=== PATIENT | female | born 1970 | race Hispanic/Latino ===

== ENCOUNTER 2021-03-15 11:50 | Inpatient (IN) | payer OTHER ==
[~2021-03-15] VITALS: Ht 160 cm; Wt 130.6 kg
[2021-03-15] VITALS (22 sets, daily range): BP systolic 101–155; BP diastolic 60–99
[2021-03-15] MEDS ORDERED: HYDROMORPHONE 0.5 MG SYG (0.5MG/0.5ML) IVP SCH (14:00)
[2021-03-15 14:25] LABS: BASOPHILS % (AUTO) 0.2 % (0.0-5.0); EOSINOPHILS % (AUTO) 0.4 % (0.0-8.0); HEMATOCRIT 36.1 % (36-48); LYMPHOCYTES % (AUTO) 9.2 % (21.0-51.0); MEAN CORPUSCULAR HEMOGLOBIN 26.6 pg (27.0-33.0); MEAN CORPUSCULAR HGB CONC 29.1 g/dL (32.0-36.0); MEAN CORPUSCULAR VOLUME 91.6 fL (79-99); MONOCYTES % (AUTO) 6.8 % (3.0-13.0); NEUTROPHILS % (AUTO) 83.1 % (40.0-77.0); PLATELET COUNT (AUTO) 144 K/uL (130-400); RED BLOOD CELL COUNT(AUTO) 3.94 MIL/uL (4.00-5.50); RED CELL DISTRIBUTION WIDTH 18.4 % (11.0-15.5); WHITE BLOOD COUNT (AUTO) 12.1 K/uL (4.8-10.8)
[2021-03-15] MEDS ORDERED: ACETAMINOPHEN 325 MG TAB PO PRN (14:30)
[2021-03-15] MEDS ORDERED: HYDRALAZINE 20MG/ML VIAL IV PRN (14:30)
[2021-03-15] MEDS ORDERED: ONDANSETRON 4MG INJ IV PRN (14:30)
[2021-03-15] MEDS ORDERED: IOHEXOL-350 50ML VIAL IV ONE (14:31)
[2021-03-15 14:35] LABS: APPEARANCE,URINE Clear (CLEAR); BILIRUBIN,URINE Negative (NEGATIVE); COLOR,URINE Yellow (YELLOW); GLUCOSE, URINE (UA) Negative (NEGATIVE); KETONES,URINE Negative (NEGATIVE); LEUKOCYTE ESTERASE ,URINE Moderate (NEGATIVE); NITRATE,URINE Negative (NEGATIVE); OCCULT BLOOD,URINE Trace (NEGATIVE); PH,URINE 6.5 (5.0-8.0); PROTEIN,URINE POS 1+ mg/dL (NEGATIVE)
[2021-03-15 14:36] LABS: ALBUMIN 2.7 g/dL (3.5-5.0); BILIRUBIN,TOTAL 0.6 mg/dL (0.2-1.0); CREATININE 1.6 mg/dL (0.5-1.5); TOTAL PROTEIN, SERUM 7.1 g/dL (6.0-8.3)
[2021-03-15] MEDS ORDERED: SUCCINYLCHOLINE 200MG/10ML SYR ONE (14:40)
[2021-03-15] MEDS ORDERED: ROCURONIUM 10MG/1ML SYR 10 MG/ML ML ONE (14:40)
[2021-03-15] MEDS ORDERED: FENTANYL CITRATE PF 50 MCG/1 ML 2ML VIAL ONE (14:40)
[2021-03-15] MEDS ORDERED: PROPOFOL 10 MG/ML 20ML VIAL IV ONE (14:40)
[2021-03-15] MEDS ORDERED: LIDOCAINE PF 100MG/5ML (2%) SYRINGE 5ML ONE (14:40)
[2021-03-15] MEDS ORDERED: MIDAZOLAM HCL 1 MG/ML 2ML VIAL ONE (14:40)
[2021-03-15 14:49] LABS: INR 1.28 (0.85-1.15); PROTHROMBIN TIME 13.6 SEC (9.6-11.6)
[2021-03-15 14:50] LABS: PARTIAL THROMBOPLASTIN TIME 31.8 SEC (26.3-35.5)
[2021-03-15] MEDS ORDERED: LACTATED RINGERS 1000ML 1,000 ML IV ONE (14:53)
[2021-03-15] MEDS ORDERED: ZOSYN 3.375GM+NS 50ML 50 ML ONE (14:53)
[2021-03-15] MEDS ORDERED: SCOPOLAMINE HYDROBROMIDE 1 EACH ADH..PATCH TD ONE (14:53)
[2021-03-15 14:59] LABS: BAND NEUTROPHILS % (MANUAL) 9 % (0-2); LYMPHOCYTES % (MANUAL) 12 % (22-44); MONOCYTES % (MANUAL) 2 % (2-9); SEGMENTED NEUTROPHILS % 77 % (40-70)
[2021-03-15 15:00] LABS: MAN.DIFF COMMENT-IMPRESSION MANUAL DIFFERENTIAL; PLATELET MORPHOLOGY COMMENT ADEQUATE
[2021-03-15] MEDS: ZOSYN 3.375GM+NS 50ML 50 ML IV SCH ×2 (15:00→21:05)
[2021-03-15 15:05] LABS: BACTERIA,URINE Few /HPF (None Seen); RBC,URINE None Seen /HPF (0-1); SQUAMOUS EPITHELIAL CELL,UR 0-2 /HPF (0-2)
[2021-03-15] MEDS: LACTATED RINGERS 1000ML 1,000 ML IV SCH ×2 (16:06→18:01)
[2021-03-15] MEDS: FAMOTIDINE 20MG VIAL IV SCH (18:02)
[2021-03-15] MEDS ORDERED: ZOSYN 3.375GM+NS 50ML 50 ML IV SCH (21:00)
[2021-03-15] MEDS ORDERED: 0.9%NACL 100ML 100 ML ONE (21:00)
[2021-03-15] MEDS: HYDROMORPHONE 0.5 MG SYG (0.5MG/0.5ML) IV PRN (21:09)
[2021-03-16] MEDS ORDERED: HYDROMORPHONE 0.5 MG SYG (0.5MG/0.5ML) IVP SCH
[2021-03-16 04:46] VITALS: BP 113/78
[2021-03-16 05:23] LABS: HEMATOCRIT 32.3 % (36-48); MEAN CORPUSCULAR HEMOGLOBIN 27.2 pg (27.0-33.0); MEAN CORPUSCULAR HGB CONC 29.7 g/dL (32.0-36.0); MEAN CORPUSCULAR VOLUME 91.5 fL (79-99); RED BLOOD CELL COUNT(AUTO) 3.53 MIL/uL (4.00-5.50); RED CELL DISTRIBUTION WIDTH 18.6 % (11.0-15.5); WHITE BLOOD COUNT (AUTO) 9.8 K/uL (4.8-10.8)
[2021-03-16] MEDS ORDERED: 0.9%NACL 100ML 100 ML ONE (05:29)
[2021-03-16 05:38] LABS: CREATININE 1.4 mg/dL (0.5-1.5); POTASSIUM 3.6 mmol/L (3.5-5.1)
[2021-03-16] MEDS: ZOSYN 3.375GM+NS 50ML 50 ML IV SCH ×3 (06:09→20:15)
[2021-03-16] MEDS: LACTATED RINGERS 1000ML 1,000 ML IV SCH ×2 (06:14→15:41)
[2021-03-16] MEDS: HYDROMORPHONE 0.5 MG SYG (0.5MG/0.5ML) IV PRN ×3 (06:15→21:12)
[2021-03-16 07:35] VITALS: BP 112/78
[2021-03-16] MEDS: FAMOTIDINE 20MG VIAL IV SCH (09:59)
[2021-03-16 11:10] VITALS: BP 119/78
[2021-03-16 15:05] VITALS: BP 124/78
[2021-03-16] MEDS: ACETAMINOPHEN 325 MG TAB PO PRN (20:14)
[2021-03-16 20:18] VITALS: BP 150/89
[2021-03-16 23:46] VITALS: BP 139/87
[2021-03-17] MEDS: HYDROMORPHONE 0.5 MG SYG (0.5MG/0.5ML) IV PRN ×2 (03:46→10:35)
[2021-03-17 04:43] VITALS: BP 119/79
[2021-03-17] MEDS: ZOSYN 3.375GM+NS 50ML 50 ML IV SCH (05:20)
[2021-03-17 06:59] LABS: BASOPHILS % (AUTO) 0.2 % (0.0-5.0); EOSINOPHILS % (AUTO) 2.1 % (0.0-8.0); HEMATOCRIT 33.2 % (36-48); LYMPHOCYTES % (AUTO) 17.6 % (21.0-51.0); MEAN CORPUSCULAR HEMOGLOBIN 27.5 pg (27.0-33.0); MEAN CORPUSCULAR HGB CONC 29.8 g/dL (32.0-36.0); MEAN CORPUSCULAR VOLUME 92.2 fL (79-99); MONOCYTES % (AUTO) 5.9 % (3.0-13.0); NEUTROPHILS % (AUTO) 73.5 % (40.0-77.0); PLATELET COUNT (AUTO) 156 K/uL (130-400); WHITE BLOOD COUNT (AUTO) 8.1 K/uL (4.8-10.8)
[2021-03-17 07:45] LABS: CREATININE 1.3 mg/dL (0.5-1.5); POTASSIUM 3.6 mmol/L (3.5-5.1)
[2021-03-17 07:52] VITALS: BP 130/91
[2021-03-17] MEDS: ACETAMINOPHEN 325 MG TAB PO PRN (08:08)
[2021-03-17] MEDS: FAMOTIDINE 20MG VIAL IV SCH (08:08)
[2021-03-17] MEDS ORDERED: NYSTATIN 100000 UNIT/ML 5ML UDCUP PO SCH (09:00)
[2021-03-17] MEDS ORDERED: NYSTATIN 100000 UNIT/ML 5ML UDCUP PO PRN (09:30)
[2021-03-17 12:02] VITALS: BP 109/64
== END 2021-03-17 13:00 | disposition home or self-care (01) | DRG 854 ==
LOC: 3DH 12:06 → 3AH 03-16 08:23
PROVIDERS: ADMIT Internal Medicine; ATTEND Internal Medicine
PROC: 0T768DZ Dilation of Right Ureter with Intraluminal Device, Via Natural or Artificial Opening Endoscopic (ICD-10-PCS; principal; 2021-03-15 14:30)
DX: A41.9 Sepsis, unspecified organism (principal); E44.0 Moderate protein-calorie malnutrition; N17.9 Acute kidney failure, unspecified; N20.2 Calculus of kidney with calculus of ureter; Z68.43 Body mass index [BMI] 50.0-59.9, adult; N30.80 Other cystitis without hematuria; I10 Essential (primary) hypertension; E66.01 Morbid (severe) obesity due to excess calories; R65.20 Severe sepsis without septic shock; Z87.891 Personal history of nicotine dependence; Z87.442 Personal history of urinary calculi; Z90.49 Acquired absence of other specified parts of digestive tract; Z88.8 Allergy status to other drugs, medicaments and biological substances
CPT/HCPCS: 36415; 74018; 80048; 80053; 81001; 83605; 84145; 85025; 85027; 85610; 85730; 87088; A4344; C1758; C2617; G0378; J0330; J1170; J2001; J2250; J2405; J2543; J2704; J3010; J3490; J7120; Q9967

== ENCOUNTER 2021-03-26 17:49 | Inpatient (IN) | payer SELFPAY ==
[~2021-03-26] VITALS: Ht 160 cm; Wt 128.8 kg
[2021-03-26] MEDS ORDERED: ONDANSETRON 4MG INJ ONE (20:24)
[2021-03-26 20:47] LABS: BASOPHILS % (AUTO) 0.5 % (0.0-5.0); EOSINOPHILS % (AUTO) 1.7 % (0.0-8.0); HEMATOCRIT 40.4 % (36-48); LYMPHOCYTES % (AUTO) 30.1 % (21.0-51.0); MEAN CORPUSCULAR HEMOGLOBIN 27.1 pg (27.0-33.0); MEAN CORPUSCULAR HGB CONC 30.7 g/dL (32.0-36.0); MEAN CORPUSCULAR VOLUME 88.4 fL (79-99); MONOCYTES % (AUTO) 5.8 % (3.0-13.0); NEUTROPHILS % (AUTO) 61.5 % (40.0-77.0); PLATELET COUNT (AUTO) 412 K/uL (130-400); RED BLOOD CELL COUNT(AUTO) 4.57 MIL/uL (4.00-5.50); RED CELL DISTRIBUTION WIDTH 17.6 % (11.0-15.5); WHITE BLOOD COUNT (AUTO) 11.8 K/uL (4.8-10.8)
[2021-03-26 20:59] LABS: CREATININE 1.5 mg/dL (0.5-1.5); POTASSIUM 3.9 mmol/L (3.5-5.1)
[2021-03-26] MEDS ORDERED: 0.9%NACL 50ML 50 ML IV ONE (20:59)
[2021-03-26] MEDS ORDERED: ZOSYN 3.375GM +NS 50ML IV ONE (21:00)
[2021-03-26] MEDS ORDERED: ONDANSETRON 4MG INJ IVP ONE (21:00)
[2021-03-26] MEDS ORDERED: MORPHINE 2 MG SYG IVP ONE (21:00)
[2021-03-26] MEDS ORDERED: METOCLOPRAMIDE 10 MG/2 ML VIAL IVP ONE (21:00)
[2021-03-26] MEDS ORDERED: 0.9%NACL 1000ML 1,572 ML IV ONE (21:00)
[2021-03-26 21:08] LABS: ALBUMIN 3.3 g/dL (3.5-5.0); BILIRUBIN,TOTAL 0.2 mg/dL (0.2-1.0); TOTAL PROTEIN, SERUM 8.8 g/dL (6.0-8.3)
[2021-03-26 21:55] LABS: APPEARANCE,URINE CLOUDY (CLEAR); BILIRUBIN,URINE NEGATIVE (NEGATIVE); COLOR,URINE YELLOW (YELLOW); GLUCOSE, URINE (UA) NEGATIVE (NEGATIVE); KETONES,URINE NEGATIVE (NEGATIVE); LEUKOCYTE ESTERASE ,URINE LARGE (NEGATIVE); NITRATE,URINE POSITIVE (NEGATIVE); OCCULT BLOOD,URINE LARGE (NEGATIVE); PROTEIN,URINE 30 mg/dL (NEGATIVE); UROBILINOGEN,URINE 0.2 mg/dL (0.2-1.0)
[2021-03-26 22:03] LABS: HCG,QUAL RESULT NEGATIVE (NEGATIVE)
[2021-03-26 22:05] LABS: BACTERIA,URINE Moderate /HPF (None Seen); MUCUS,URINE Rare LPF (None Seen); SQUAMOUS EPITHELIAL CELL,UR Few /HPF (0-2)
[2021-03-26] MEDS ORDERED: ONDANSETRON 4MG INJ IV PRN (23:30)
[2021-03-26] MEDS ORDERED: ACETAMINOPHEN 325 MG TAB PO PRN (23:30)
[2021-03-26] MEDS ORDERED: HYDROCODONE/ACETAMINOPHEN 5/325 MG TAB PO PRN (23:30)
[2021-03-26] MEDS ORDERED: MORPHINE 4 MG SYG IV PRN (23:30)
[2021-03-27] VITALS (24 sets, daily range): BP systolic 91–152; BP diastolic 55–96
[2021-03-27] MEDS: 0.9%NACL 1000ML 1,000 ML IV SCH ×2 (01:57→09:30)
[2021-03-27 05:01] LABS: BASOPHILS % (AUTO) 0.3 % (0.0-5.0); EOSINOPHILS % (AUTO) 1.5 % (0.0-8.0); HEMATOCRIT 38.4 % (36-48); LYMPHOCYTES % (AUTO) 21.3 % (21.0-51.0); MEAN CORPUSCULAR HEMOGLOBIN 26.5 pg (27.0-33.0); MEAN CORPUSCULAR HGB CONC 29.7 g/dL (32.0-36.0); MEAN CORPUSCULAR VOLUME 89.3 fL (79-99); NEUTROPHILS % (AUTO) 71.4 % (40.0-77.0); PLATELET COUNT (AUTO) 299 K/uL (130-400); RED CELL DISTRIBUTION WIDTH 17.6 % (11.0-15.5); WHITE BLOOD COUNT (AUTO) 9.8 K/uL (4.8-10.8)
[2021-03-27 05:13] LABS: INR 1.03 (0.85-1.15); PROTHROMBIN TIME 11.2 SEC (9.6-11.6)
[2021-03-27 05:15] LABS: CREATININE 1.2 mg/dL (0.5-1.5); PARTIAL THROMBOPLASTIN TIME 27.3 SEC (26.3-35.5); PHOSPHORUS 3.2 mg/dL (2.5-4.9); POTASSIUM 3.8 mmol/L (3.5-5.1)
[2021-03-27] MEDS: ZOSYN 3.375GM+NS 50ML 50 ML IV SCH ×3 (06:15→20:27)
[2021-03-27] MEDS: PANTOPRAZOLE 40 MG/VIAL IVP SCH (08:30)
[2021-03-27] MEDS ORDERED: ENOXAPARIN SODIUM 40 MG/0.4 ML SYRINGE SQ SCH (09:00)
[2021-03-27] MEDS ORDERED: SCOPOLAMINE HYDROBROMIDE 1 EACH ADH..PATCH TD ONE (10:24)
[2021-03-27] MEDS ORDERED: IOHEXOL-350 50ML VIAL IV ONE (10:27)
[2021-03-27] MEDS ORDERED: LIDOCAINE PF 100MG/5ML (2%) SYRINGE 5ML ONE (10:43)
[2021-03-27] MEDS ORDERED: SUCCINYLCHOLINE 200MG/10ML SYR ONE (10:43)
[2021-03-27] MEDS ORDERED: ROCURONIUM 10MG/1ML SYR 10 MG/ML ML ONE (10:43)
[2021-03-27] MEDS ORDERED: PROPOFOL 10 MG/ML 20ML VIAL IV ONE (10:43)
[2021-03-27] MEDS ORDERED: MIDAZOLAM HCL 1 MG/ML 2ML VIAL ONE (10:43)
[2021-03-27] MEDS ORDERED: FENTANYL CITRATE PF 50 MCG/1 ML 2ML VIAL ONE (10:44)
[2021-03-27] MEDS ORDERED: ONDANSETRON 4MG INJ ONE (10:44)
[2021-03-27] MEDS ORDERED: GLYCOPYRROLATE 1 MG/5 ML SYRINGE ONE (11:45)
[2021-03-27] MEDS ORDERED: NEOSTIGMINE 5MG/5ML SYR IV ONE (11:45)
[2021-03-27] MEDS ORDERED: MEPERIDINE-PF 25 MG/ML SYG ONE (12:23)
[2021-03-27] MEDS: ACETAMINOPHEN WITH CODEINE 1 TAB TAB PO PRN (20:28)
[2021-03-28 04:38] VITALS: BP 133/74
[2021-03-28] MEDS: ZOSYN 3.375GM+NS 50ML 50 ML IV SCH ×2 (05:27→13:22)
[2021-03-28] MEDS: 0.9%NACL 1000ML 1,000 ML IV SCH (05:30)
[2021-03-28 08:00] VITALS: BP 90/41
[2021-03-28] MEDS: PANTOPRAZOLE 40 MG/VIAL IVP SCH (09:47)
[2021-03-28] MEDS: ACETAMINOPHEN WITH CODEINE 1 TAB TAB PO PRN ×2 (09:53→16:27)
[2021-03-28 11:19] VITALS: BP 132/72
[2021-03-28 16:03] VITALS: BP 136/78
[2021-03-28] MEDS ORDERED: LEVO500T90 PO (16:39)
== END 2021-03-28 18:25 | disposition home or self-care (01) | DRG 661 ==
LOC: EDH 17:49 → EDHIP 17:50 → UNDOADMIN 23:18 → EDHIP 23:18 → DAHIP 03-27 09:47 → 3BH 03-27 13:14
PROVIDERS: ADMIT Internal Medicine; ATTEND Internal Medicine
PROC: 0T768DZ Dilation of Right Ureter with Intraluminal Device, Via Natural or Artificial Opening Endoscopic (ICD-10-PCS; principal; 2021-03-27 11:13)
PROC: 0TC08ZZ Extirpation of Matter from Right Kidney, Via Natural or Artificial Opening Endoscopic (ICD-10-PCS; 2021-03-27 11:13)
DX: N20.0 Calculus of kidney (principal); E86.9 Volume depletion, unspecified; M47.815 Spondylosis without myelopathy or radiculopathy, thoracolumbar region; Z20.822 Contact with and (suspected) exposure to COVID-19; Z87.442 Personal history of urinary calculi; Z88.8 Allergy status to other drugs, medicaments and biological substances; Z90.49 Acquired absence of other specified parts of digestive tract; Z90.79 Acquired absence of other genital organ(s)
CPT/HCPCS: 36415; 71045; 74018; 74176; 80048; 80053; 81001; 81025; 82360; 83605; 83690; 83735; 84100; 84145; 84484; 85025; 85610; 85730; 86850; 86900; 86901; 87040; 87077; 87088; 87186; 87635; 93005; C1758; C1769; C1894; C2617; C9113; C9803; G0378; J0330; J1650; J2001; J2175; J2250; J2405; J2543; J2704; J2710; J2765; J3010; J3490; Q9967